=== PATIENT | female | born 1940 | race Caucasian/White ===

== ENCOUNTER 2020-01-17 06:49 | Day surgery (SDC) | payer OTHER ==
[2020-01-16 14:38] VITALS: BMI 21.0
[2020-01-17] MEDS ORDERED: EPINEPHrine/PF 1 MG/1 ML (1:1,000) AMPULE ONE (07:32)
[2020-01-17] MEDS: CIPROFLOXACIN 0.3% EYE DROPS 5 ML BOTTLE ONE ×3 (07:45→07:55)
[2020-01-17] MEDS: CYCLOPENTOLATE 2% OPHTH SOLN 2 ML BOTTLE ONE ×3 (07:45→07:55)
[2020-01-17] MEDS: PHENYLEPHRINE 2.5% OPHTH SOLN 15 ML BOTTLE ONE ×3 (07:45→07:55)
[2020-01-17] MEDS: TROPICAMIDE 1% OPHTH SOLN 15 ML BOTTLE ONE ×3 (07:45→07:55)
[2020-01-17] MEDS ORDERED: CARBACHOL 0.01% INTRA-OCULAR 1.5 ML VIAL ONE (08:59)
[2020-01-17] MEDS ORDERED: MIDAZOLAM HCL 2 MG/2 ML SINGLE DOSE VIAL ONE (09:05)
[2020-01-17 13:44] VITALS: BP 137/64; PULSE 64; TEMP 97.7
--- NOTE | 2020-01-17 17:48 | OP ---
DATE OF OPERATION: 01/17/2020 OPERATIVE PROCEDURE: Lens Phacoemulsification with Posterior Chamber Intraocular Lens Placement Left Eye PREOPERATIVE DIAGNOSIS: Visually Significant Cataract of Left Eye POSTOPERATIVE DIAGNOSIS: Visually Significant Cataract of Left Eye SURGEON: Felix Grossman M.D. ANESTHESIA: MAC PROCEDURE: The patient was brought to the operating room and placed under monitored anesthesia care by Anesthesia. A drop of Tetracaine was then placed over the left eye. The patient was then prepped and draped in the usual sterile manner. A speculum was then placed over the left eye. The eye was then well irrigated with copious amounts of BSS (balanced salt solution). The operating microscope was then moved into position. A paracentesis was performed using a 15 degree blade. At this point 0.5 mL of 1% preservative-free lidocaine was injected into the anterior chamber. Amvisc plus was then injected into the anterior chamber. A clear corneal incision was then formed using a 2.2 mm keratome. A capsulorrhexis was then performed in a continuous circular fashion beginning with a cystotome, completed with an Utratas forceps. Hydrodissection was then performed using BSS on a cannula. The phaco probe was then introduced through the corneal wound and the cataract was removed using the phaco chop technique. Approximately 3 seconds of absolute phaco time was used. The remaining cortex was then removed using irrigation and aspiration with an I/A probe. The capsule was then filled with regular Amvisc and the capsule was noted to be intact. A previously selected foldable posterior chamber intraocular lens was then injected into the capsule through the corneal wound using a lens injector. It was then dialed into position using a Sinskey hook. The Amvisc was then removed using irrigation and aspiration. Miostat was then injected through the paracentesis to constrict the pupil. The paracentesis and corneal wound were then hydrated and noted to be water tight. A drop of Maxitrol was then placed over the eye. The speculum was removed and clear shield was taped over the eye. The patient tolerated the procedure well and there were no surgical complications. The patient was asked to follow up in my office the next day. FELIX GROSSMAN M.D. DENNIS/[id number]
== END 2020-01-17 10:15 | disposition home or self-care (01) ==
LOC: EDBD → FASU 06:49 → EDBD 10:30
PROVIDERS: ATTEND Ophthalmology
PROC: 08RK3JZ Replacement of Left Lens with Synthetic Substitute, Percutaneous Approach (ICD-10-PCS; principal; 2020-01-17 09:07)
DX: H26.8 Other specified cataract (principal)

== ENCOUNTER 2020-03-02 12:20 | Emergency (ER) | payer OTHER ==
[2020-03-02 12:26] VITALS: TEMP 98.7; BMI 22.6
--- OUTSIDE RECORDS SUMMARY | 2020-03-02 12:29 | XMS ---
:1940 Author Organization [facility] Support Name Relationship Address Phone YEIMY CONCEPCION DAUGHTER [address] [facility] [phone] [place] [address] RE Unavailable Unavailable Unavailable SKYLA CONCEPCION [address] [address] Re-disclosure Warning The records that you are about to access may contain information from federally- assisted alcohol or drug abuse programs. If such information is present, then the following federally mandated warning applies: This information has been disclosed to you from records protected by federal confidentiality rules (42 CFR part 2). The federal rules prohibit you from making any further disclosure of this information unless further disclosure is expressly permitted by the written consent of the person to whom it pertains or as otherwise permitted by 42 CFR part 2. A general authorization for the release of medical or other information is NOT sufficient for this purpose. The Federal rules restrict any use of the information to criminally investigate or prosecute any alcohol or drug abuse patient.The records that you are about to access may contain highly sensitive health information, the redisclosure of which is protected by Article 27-F of the [facility] Public Health law. If you continue you may haveaccess to information: Regarding HIV / AIDS; Provided by facilities licensed or operated by the [facility] Office of Mental Health; or Provided by the [facility] Office for People With Developmental Disabilities. If such information is present, then the following [facility] mandated warning applies: This information has been disclosed to you from confidential records which are protected by state law. State law prohibits you from making any further disclosure of this information without the specific written consent of the person to whom it pertains, or as otherwise permitted by law. Any unauthorized further disclosure in violation of state law may result in a fine or [place] [facility] sentence or both. A general authorization for the release of medical or other information is NOT sufficient authorization for further disclosure. Insurance Providers Payer name Policy type Policy ID Covered Covered green party's Policy P pavan / Coverage green party ID relationship to [employer] type [place] [id number] SP [id number] [place]ALTHCARE [place]MEDICARE[place] [id number] SP [id number] [place]ALTHCARE PPO [place] [id number] SP [id number] HEALTHCARE PPO [place] [id number] SP [id number] HEALTHCARE (MEDICARE) Results ID Date Data Source [id number] 02/17/2020 11:08:00 AM EDT [facility] Name Value Range Interpretation Description Data Sup porting Code Source(s) Document(s ) SARS [facility] coronavirus 2 RNA This lab was ordered by [facility] and reported by [facility]. ID Date Data Source [id number] 01/13/2020 11:00:00 AM EDT [facility] Name Value Range Interpretation Description Data Sup porting Code Source(s) Document(s ) SARS [facility] coronavirus 2 RNA This lab was ordered by [facility] and reported by [facility]. Procedure
--- NOTE | 2020-03-02 12:31 | PDOC ---
History of Present Illness - General Chief Complaint: Injury Stated Complaint: S/P FALL, LACERATION TO FOREHEAD Time Seen by Provider: 03/02/20 12:30 - History of Present Illness Initial Comments: 03/02/20 15:29 79 F with asthma, HTN, CAD s/p 2 stents on baby aspirin presented to the ED after a fall. Patient tripped, fell forward, hit a rail on the porch. Denied LOC, nausea, vomiting. Patient has no change of vision. Denied Pain on left forehead laceration. PMHX: as in HPI PSHX: stents Meds: home med Allergies: crab Tob: neg Etoh: neg Rec drugs: neg ROS GENERAL/CONSTITUTIONAL: No fever or chills. No weakness. HEAD, EYES, EARS, NOSE AND THROAT: No change in vision. No ear pain or discharge. No sore throat. CARDIOVASCULAR: No chest pain or shortness of breath RESPIRATORY: No cough, wheezing, or hemoptysis. GASTROINTESTINAL: No nausea, vomiting, diarrhea or constipation. GENITOURINARY: No dysuria, frequency, or change in urination. MUSCULOSKELETAL: No joint or muscle swelling or pain. No neck or back pain. SKIN: No rash NEUROLOGIC: No headache, vertigo, loss of consciousness, or change in strength/sensation. ENDOCRINE: No increased thirst. No abnormal weight change HEMATOLOGIC/LYMPHATIC: No anemia, easy bleeding, or history of blood clots. ALLERGIC/IMMUNOLOGIC: No hives or skin allergy. PE GENERAL: Awake, alert, and fully oriented, in no acute distress HEAD: normocephalic, 4cm linear left forehead laceration. EYES: PERRLA, EOMI, sclera anicteric, conjunctiva clear ENT: Auricles normal inspection, hearing grossly normal, nares patent, oropharynx clear without exudates. Moist mucosa NECK: Normal ROM, supple, no lymphadenopathy, JVD, or masses LUNGS: No distress, speaks full sentences, clear to auscultation bilaterally HEART: Regular rate and rhythm, normal S1 and S2, no murmurs, rubs or gallops, peripheral pulses normal and equal bilaterally. ABDOMEN: Soft, nontender, normoactive bowel sounds. No guarding, no rebound. No masses EXTREMITIES : Normal inspection, Normal range of motion, no edema. No clubbing or cyanosis. NEUROLOGICAL: Cranial nerves II through XII grossly intact. Normal speech, normal gait, no focal sensorimotor deficits SKIN: Warm, Dry, normal turgor, no rashes or lesions noted Past History - Medical History Allergies/Adverse Reactions: Allergies Allergy/AdvReac Type Severity Reaction Status Date / Time crab Allergy Intermediate Rash Verified 02/21/20 08:57 No Known Drug Allergies Allergy Verified 01/17/20 07:45 Home Medications: Ambulatory Orders Albuterol 0.083% Nebulizer Alejandra [Ventolin 0.083% Nebulizer Soln -] 1 neb NEB Q6H PRN 12/10/14 Albuterol Sulfate Inhaler - [Ventolin HFA Inhaler -] 2 inh PO Q4H PRN #1 inh 12/10/14 Aspirin [Aspirin EC] 81 mg PO DAILY 12/10/14 Diltiazem Cd [Cardizem Cd -] 240 mg PO DAILY 12/10/14 Ezetimibe [Zetia] 10 mg PO DAILY 12/10/14 Pravastatin Sodium [Pravachol -] 40 mg PO HS 12/10/14 Cholecalciferol (Vitamin D3) [Vitamin D3 -] 1,000 unit PO DAILY 01/16/20 Cyanocobalamin [Vitamin B12 -] 1,000 mcg PO DAILY 01/16/20 Donepezil HCl [Aricept -] 10 mg PO HS 01/16/20 Ferrous Sulfate 325 mg PO DAILY 01/16/20 Montelukast Sodium [Singulair] 10 mg PO HS 01/16/20 Mepolizumab [Nucala] 100 mg SQ MONTHLY 01/17/20 Anemia: No Asthma: Yes Cancer: No Cardiac Disorders: Yes (MIX2 STENTS) CVA: No COPD: No CHF: No Dementia: Yes (on Aricept-pt is forgetful as per daughter) Diabetes: No GI Disorders: No Disorders: No HTN: Yes Hypercholesterolemia: Yes Liver Disease: No Seizures: No Thyroid Disease: No - Surgical History Abdominal Surgery: No Appendectomy: No Cardiac Surgery: Yes (STENT) Cholecystectomy: No Lung Surgery: No Neurologic Surgery: No Orthopedic Surgery: No - Reproductive History Is Patient Now?: No - Immunization History Immunization Up to Date: Yes - Psycho-Social/Smoking History Smoking History: Never smoked Have you smoked in the past 12 months: No Information on smoking cessation initiated: No - Substance Abuse Hx (Audit-C & DAST Scrn) How often the patient has a drink containing alcohol: Never Score: In Men: 4 or > Positive; In Women: 3 or > Positive: 0 Screen Result (Pos requires Nsg. Audit-10AR): Negative In the last yr the pt used illegal drug/Rx for NonMed reason: No Score: Yes response is considered Positive: 0 Screen Result (Positive result requires Nsg. DAST-10): Negative *Physical Exam - Vital Signs Last Vital Signs Temp Pulse Resp BP Pulse Ox 98.7 F 74 18 181/83 H 96 03/02/20 12:22 03/02/20 12:22 03/02/20 12:22 03/02/20 12:22 03/02/20 12:22 Procedures - Laceration/Wound Repair Left Upper Head Wound Length: 2.6 to 5.0 cm Wound Explored: clean Wound's Depth, Shape: superficial, linear Irrigated w/ Saline: Yes Anesthesia: 1% Lidocaine w/ Epi Amount of Anesthetic (ccs): 10 Wound Debrided: minimal Wound Repaired With: Sutures Suture Size/Type: 6:0, nylon, other Number of Sutures: 13 Deep Layer Suture Size/Type: 4:0, vycril Number of Deep Layer Sutures: 3 Sterile Dressing Applied: Yes Medical Decision Making - Medical Decision Making 03/02/20 15:37 Plan : -Head CT + neck CT -laceration repair. Result: head and neck CT are negataive -Laceration is repair. Please see the note. 3 suture deep derma Discharge - Discharge Information Problems reviewed: Yes Clinical Impression/Diagnosis: Head trauma, Laceration Condition: Improved Disposition: HOME - Follow up/Referral Referrals: Emily Etienne [Primary Care Provider] - - Patient Discharge Instructions Patient Printed Discharge Instructions: DI for Laceration Repair, Closed Head Injury Additional Instructions: Your head CT is negative for any intracranial injury today. He had a large laceration to her left forehead which was repaired with sutures sutures will need to be removed in 5 to 7 days return to the ER for any change to mental status vomiting headache confusion or any concerns. Also return for any redness swelling or signs of infection to your wound he also had a CT of your cervical spine which shows chronic arthritis but no acute traumatic injuries for your pain if you have any you can take Tylenol 500 mg every 6 hours as needed. Keep the wound clean and covered for 24 to 48 hours you may then apply bacitracin twice daily wash with mild soap and warm water - Post Discharge Activity
[2020-03-02] MEDS ORDERED: LIDO 2%/EPI 1:200000 PRESRVFRE (20 ML SDVIAL) ONE (13:58)
[2020-03-02] MEDS ORDERED: LIDOCAINE HCL 1% PRESERVATIVE FREE - 30ML VIAL IJ ONE (13:59)
--- NOTE | 2020-03-02 15:17 | PDOC ---
Attending Attestation - Resident Resident Name: Nicholas Velasquez - ED Attending Attestation I have performed the following: I have examined & evaluated the patient, The case was reviewed & discussed with the resident, I agree w/resident's findings & plan, Exceptions are as noted - HPI HPI: 03/02/20 15:19 79-year-old female history of asthma hypertension CAD with 2 stents here today status post trip and fall sustained laceration to her left forehead. Happened just prior to arrival denies any LOC no weakness since that has been ambulating since her fall last tetanus is unknown denies any chest pain or palpitations precipitating her fall no hip or extremity pain since - Physicial Exam PE: 03/02/20 15:14 Awake alert no acute distress examination of the head demonstrates a frontal forehead contusion and hematoma no palpable skull defect there is a large 2-1/2 inch linear horizontal laceration just above the left eyebrow into the subcu tissue no bony step-offs there is also a superficial abrasion with avulsion of skin over the bridge of the nose no epistaxis appreciated no septal hematoma. No jaw malocclusion no midline cervical spinal tenderness. Lungs are clear bilaterally there is no chest wall tenderness or step-offs heart is regular 30 murmurs rubs or gallops abdomen soft nontender extremities are warm well perfused full range of motion nontender throughout neurologic the patient is awake alert and oriented x3 - Medical Decision Making 03/02/20 15:15 79-year-old female here status post trip and fall states , does take baby asa. she was walking and tripped landing forward hitting her forehead with a large laceration to her forehead abrasion to her nose ambulatory following. Plan CT head to rule intracranial hemorrhage tetanus will be given laceration repair to the left forehead cervical spine CT Head CT was unremarkable for any intracranial injury CT cervical spine is negative. Laceration was repaired in a 2 layer closure with a 4-0 Vicryl deep sutures x4 as well as 6-0 nylon patient tolerated well bacitracin and sterile dressing was applied discharged home told to return for any acute mental status changes vomiting weakness or any concerns told to return for suture removal and 5 to 7 days 03/02/20 15:20 Discharge - Discharge Information Problems reviewed: Yes Clinical Impression/Diagnosis: Head trauma, Laceration Condition: Improved Disposition: HOME - Admission No - Follow up/Referral Referrals: Emily Etienne [Primary Care Provider] - - Patient Discharge Instructions Patient Printed Discharge Instructions: DI for Laceration Repair - Post Discharge Activity
[2020-03-02 15:41] VITALS: BP 164/76; PULSE 67
== END 2020-03-02 16:00 | disposition home or self-care (01) ==
LOC: FER 12:20
PROC: 0HQ0XZZ Repair Scalp Skin, External Approach (ICD-10-PCS; principal; 2020-03-02)
DX: S09.90XA Unspecified injury of head, initial encounter (principal); S01.81XA Laceration without foreign body of other part of head, initial encounter
CPT/HCPCS: 70450-TC; 72125-TC; 99284-25